=== PATIENT | male | born 1975 | race Caucasian/White ===

== ENCOUNTER 2016-08-16 10:58 | Emergency (ER) ==
--- NOTE | 2016-08-16 11:12 | ED.PDOC ---
General ED Provider: Dr. DENISSE ROLLE Chief Complaint: Tooth Problem Stated Complaint: Been hurting left upper teeth, face is swollen. Time Seen by Physician: 11:10 Mode of Arrival: Walk-In Information Source: Patient Primary Care Provider: EDISON COLINDRES Nursing and Triage Documentation Reviewed and Agree: Yes EENT Complaint Exam - Dental/Oral Complaint/Exam Mechanism of Injury: No known trauma Symptoms Are: Still present Timing: Constant Initial Severity: Mild Current Severity: Moderate Character: Reports: Aching Aggravating: Reports: Cold, Chewing Alleviating: Reports: None Associated Signs and Symptoms: Reports: Swelling Cardiac Risk Factors: Reports: None Dental/Oral Surgical History: Reports: None Tooth Findings: Present: Percussion tenderness Cervical Lymphadenopathy Present: No Facial Swelling Present: Yes Teeth Picture: 1 - tenderness on percussion, no caries Differential Diagnoses: Dental Abcess Review of Systems - Review Of Systems Constitutional: Reports: No symptoms Eyes: Reports: No symptoms Ears, Nose, Mouth, Throat: Reports: No symptoms, Mouth pain, Mouth swelling Respiratory: Reports: No symptoms Cardiac: Reports: No symptoms GI: Reports: No symptoms : Reports: No symptoms Musculoskeletal: Reports: No symptoms Skin: Reports: No symptoms Neurological: Reports: No symptoms Endocrine: Reports: No symptoms Hematologic/Lymphatic: Reports: No symptoms All Other Systems: Reviewed and Negative Past Medical History - Past Medical History Previously Healthy: Yes Endocrine: Reports: None Cardiovascular: Reports: None Respiratory: Reports: None Hematological: Reports: None Gastrointestinal: Reports: None Genitourinary: Reports: None Neuro/Psych: Reports: None Musculoskeletal: Reports: Arthritis, Joint Pain Cancer: Reports: None - Surgical History General Surgical History: Reports: None - Family History Family History: Reports: None - Social History Smoking Status: Former smoker Hx Substance Use: No Alcohol Screening: Occasionally Physical Exam - Physical Exam Appearance: Well-appearing, No pain distress, Well-nourished Eyes: MEAGHAN, EOMI, Conjunctiva clear ENT: Ears normal, Nose normal, Oropharynx normal Respiratory: Airway patent, Breath sounds clear, Breath sounds equal, Respirations nonlabored Cardiovascular: RRR, Pulses normal, No rub, No murmur GI/: Soft, Nontender, No masses, Bowel sounds normal, No Organomegaly Musculoskeletal: Normal strength, ROM intact, No edema, No calf tenderness Skin: Warm, Dry, Normal color Neurological: Sensation intact, Motor intact, Reflexes intact, Cranial nerves intact, Alert, Oriented Psychiatric: Affect appropriate, Mood appropriate Critical Care Note - Critical Care Note Total Time (mins): 0 Course - Course Orders, Labs, Meds: Orders Category Date Time Status Ketorolac Tromethamine [Toradol] MEDS 08/16/16 11:10 Stat 60 mg IM ONCE STA Vital Signs: Temp Pulse Resp BP Pulse Ox 08/16/16 10:59 98.7 F 62 20 141/70 H 97 Departure - Departure Time of Disposition: 11:13 Disposition: HOME SELF-CARE Discharge Problem: Toothache Instructions: Dental Abscess (ED) Condition: Stable Pt referred to PMD for follow-up: Yes (dentist) Additional Instructions: take medications with food needs f/u with dentist Prescriptions: Amoxicillin/Potassium Clav [Augmentin 500-125 mg Tab] 1 tab PO Q12HR #20 tablet Hydrocodone/Acetaminophen [[place] 5-325 Tablet] 1 tab PO TID PRN #12 tablet PRN Reason: PAIN Allergies/Adverse Reactions: Allergies No Known Allergies Allergy (Verified 08/16/16 11:05) Home Medications: Ambulatory Orders Amoxicillin/Potassium Clav [Augmentin 500-125 mg Tab] 1 tab PO Q12HR #20 tablet 08/16/16 Hydrocodone/Acetaminophen [[place] 5-325 Tablet] 1 tab PO TID PRN #12 tablet 08/16 Disposition Discussed With: Patient
[2016-08-16 11:17] VITALS: BP 141/70; TEMP 98.7; BMI 21.2
[2016-08-16] MEDS: TORADOL IM STA (11:33)
== END 2016-08-16 11:52 | disposition home or self-care (01) ==
LOC: ED 10:58
DX: K08.89 Other specified disorders of teeth and supporting structures (principal); K04.7 Periapical abscess without sinus
CPT/HCPCS: 96372; 99282

== ENCOUNTER 2017-03-08 16:53 | Emergency (ER) ==
[2017-03-08 16:56] VITALS: BP 147/86; TEMP 100.4; BMI 21.7
[2017-03-08] MEDS ORDERED: ZOFRAN 4 MG/2 ML IM STA (17:07)
[2017-03-08] MEDS ORDERED: MORPHINE 2 MG/ML SYRINGE IM STA (17:09)
[2017-03-08 17:30] LABS: BASOPHILS # (AUTO) 0.1 K/uL (0-0.2); BASOPHILS % (AUTO) 0.9 % (0.0-3.0); HEMATOCRIT 43.9 % (42.0-52.0); HEMOGLOBIN 15.6 g/dl (14.0-18.0); IMMATURE GRANULOCYTE % (AUTO) 0.2 % (0.0-5.0); LYMPHOCYTES % (AUTO) 11.6 (10.0-50.0); MEAN CORPUSCULAR HEMOGLOBIN 31.3 pg (27.0-31.0); MEAN CORPUSCULAR HGB CONC 35.5 (31.8-35.4); MEAN CORPUSCULAR VOLUME 88.2 fl (80.0-94.0); MONOCYTES # (AUTO) 0.7 K/uL (0.4-2.0); MONOCYTES % (AUTO) 8.4 (0-10); NEUTROPHILS # (AUTO) 6.5 K/ul (2.0-6.9); NEUTROPHILS % (AUTO) 78.9; PLATELET COUNT 250 10^3/uL (140-440); RED BLOOD COUNT 4.98 10^6/ul (4.70-6.10); WHITE BLOOD COUNT 8.22 K/ul (4.2-10.2)
--- NOTE | 2017-03-08 17:42 | CT ---
EXAM: CT abdomen and pelvis without contrast. HISTORY: Epigastric pain, drinks a lot. TECHNIQUE: Multi-slice transaxial helical CT. Coronal and sagittal reformatons were performed. COMPARISON: 09/17/2014. FINDINGS: The heart is normal in size. The lung bases are clear. Evaluation of the solid organs is limited without IV contrast. No hydronephrosis or renal calculus i s seen. The spleen is normal in size. The gallbladder appears partly contracted. No evidence of in trahepatic biliary ductal dilation is seen. The pancreas and the bilateral adrenal glands appear holli ssly unremarkable within the confines of a noncontrast exam The bowel is not dilated. Small bowel loops are diffusely fluid-filled. No evidence of pathologic joe wel dilation is seen. The appendix is not definitively identified. No evidence of dilated tubular s tructure right lower quadrant is seen. Urinary bladder appears unremarkable. The prostate is normal in size. No evidence of free fluid within the pelvis is seen. Operative changes of left inguinal h ernia repair are suggested. There is no retroperitoneal adenopathy. Moderate disc space narrowing wi th endplate osteophytosis at L5-S1 is present. IMPRESSION: 1. Diffuse small bowel enteritis/ileus. 2. No hydronephrosis or bowel obstruction. 3. Prior left inguinal hernia repair. 4. L5-S1 moderate disc disease.
[2017-03-08 18:02] LABS: ALANINE AMINOTRANSFERASE 25 U/L (12-78); ALBUMIN/GLOBULIN RATIO 1.18; ALKALINE PHOSPHATASE 76 U/L (50-136); AMYLASE 59 U/L (25-115); ANION GAP 12.6; ASPARTATE AMINO TRANSFERASE 24 U/L (15-37); BILIRUBIN,TOTAL 0.39 mg/dL (0.00-1.20); BLOOD UREA NITROGEN 8 mg/dL (7-18); BUN/CREATININE RATIO 7.54; CALCIUM 9.5 mg/dL (8.2-10.2); CARBON DIOXIDE 27 mmol/L (21-32); CHLORIDE 98 mmol/L (98-107); CREATINE KINASE 145 U/L; CREATININE 1.06 mg/dL (0.60-1.10); GLUCOSE 108 mg/dL (70-100); LIPASE 39 U/L (8-78); POTASSIUM 3.6 mmol/L (3.5-5.1); SODIUM 134 mmol/L (136-145); TOTAL PROTEIN 7.4 g/dL (6.4-8.2)
[2017-03-08] MEDS ORDERED: DILAUDID 1 MG/ML SYRINGE IM STA (18:22)
--- NOTE | 2017-03-08 19:00 | ED.PDOC ---
General ED Provider: Dr. ROBYN BERRIOS Chief Complaint: Abdominal Pain Stated Complaint: ABDOMINAL PAIN Time Seen by Physician: 17:00 Mode of Arrival: Walk-In Information Source: Patient Exam Limitations: No limitations Primary Care Provider: EDISON COLINDRES Nursing and Triage Documentation Reviewed and Agree: Yes Review of Systems - Review Of Systems Constitutional: Reports: No symptoms Eyes: Reports: No symptoms Ears, Nose, Mouth, Throat: Reports: No symptoms Respiratory: Reports: No symptoms Cardiac: Reports: No symptoms GI: Reports: Abdominal pain : Reports: No symptoms Musculoskeletal: Reports: No symptoms Skin: Reports: No symptoms Neurological: Reports: No symptoms Endocrine: Reports: No symptoms Hematologic/Lymphatic: Reports: No symptoms All Other Systems: Reviewed and Negative Past Medical History - Past Medical History Previously Healthy: Yes Endocrine: Reports: None Cardiovascular: Reports: None Respiratory: Reports: None Hematological: Reports: None Gastrointestinal: Reports: None Genitourinary: Reports: None Neuro/Psych: Reports: None Musculoskeletal: Reports: Arthritis, Joint Pain Cancer: Reports: None - Surgical History General Surgical History: Reports: None - Family History Family History: Reports: None - Social History Smoking Status: Former smoker Hx Substance Use: No Alcohol Screening: Occasionally Physical Exam - Physical Exam Appearance: Well-appearing, No pain distress, Well-nourished Eyes: MEAGHAN, EOMI, Conjunctiva clear ENT: Ears normal, Nose normal, Oropharynx normal Respiratory: Airway patent, Breath sounds clear, Breath sounds equal, Respirations nonlabored Cardiovascular: RRR, Pulses normal, No rub, No murmur GI/: Tender Musculoskeletal: Normal strength, ROM intact, No edema, No calf tenderness Skin: Warm, Dry, Normal color Neurological: Sensation intact, Motor intact, Reflexes intact, Cranial nerves intact, Alert, Oriented Psychiatric: Affect appropriate, Mood appropriate Critical Care Note - Critical Care Note Total Time (mins): 0 Course - Course Hematology/Chemistry: 03/08/17 17:10 03/08/17 17:10 Orders, Labs, Meds: Lab Review 03/08/17 03/08/17 17:10 17:10 WBC 8.22 RBC 4.98 Hgb 15.6 Hct 43.9 MCV 88.2 MCH 31.3 H MCHC 35.5 H RDW Coeff of Leeann 12.8 Plt Count 250 Immature Gran % (Auto) 0.2 Neut % (Auto) 78.9 Lymph % (Auto) 11.6 Braxton % (Auto) 8.4 Eos % (Auto) 0.0 Baso % (Auto) 0.9 Immature Gran # (Auto) 0.0 Neut # 6.5 Lymph # 1.0 Braxton # 0.7 Eos # 0.0 Baso # 0.1 Sodium 134 L Potassium 3.6 Chloride 98 Carbon Dioxide 27 Anion Gap 12.6 BUN 8 Creatinine 1.06 Estimated GFR (MDRD) 77.00 BUN/Creatinine Ratio 7.54 Glucose 108 H Calcium 9.5 Total Bilirubin 0.39 AST 24 ALT 25 Alkaline Phosphatase 76 Total Creatine Kinase 145 CK-MB (CK-2) 1.0 CK-MB (CK-2) % 0.01546 Troponin I < 0.0100 Total Protein 7.4 Albumin 4.0 Globulin 3.4 Albumin/Globulin Ratio 1.18 Amylase 59 Lipase 39 Orders Category Date Time Status EKG-(ED ONLY) Stat CARDIO 03/08/17 18:36 Completed AMYLASE Stat LAB 03/08/17 17:10 Completed CBC W/ AUTO DIFF Stat LAB 03/08/17 17:10 Completed COMPREHENSIVE METABOLIC PANEL Stat LAB 03/08/17 17:10 Completed CREATINE KINASE Stat LAB 03/08/17 17:10 Completed LIPASE Stat LAB 03/08/17 17:10 Completed TROPONIN I Stat LAB 03/08/17 17:10 Completed Hydromorphone HCl [Dilaudid 1 mg/ml Syringe] MEDS 03/08/17 18:22 Discontinued 0.5 mg IM ONCE STA Morphine Sulfate [Morphine 2 mg/ml Syringe] MEDS 03/08/17 17:09 Discontinued 4 mg IM ONCE STA Ondansetron HCl/Pf [Zofran 4 mg/2 ml] MEDS 03/08/17 17:07 Discontinued 4 mg IM ONCE STA CT ABDOMEN/PELVIS WO CONTRAST Stat RADS 03/08/17 17:06 Completed Medications Discontinued Medications Generic Name Dose Route Start Last Admin Trade Name Freq PRN Reason Stop Dose Admin Hydromorphone HCl 0.5 mg 03/08/17 18:22 03/08/17 18:40 Dilaudid 1 Mg/Ml Syringe IM 03/08/17 18:23 0.5 mg ONCE STA Administration Morphine Sulfate 4 mg 03/08/17 17:09 03/08/17 17:52 Morphine 2 Mg/Ml Syringe IM 03/08/17 17:10 4 mg ONCE STA Administration Ondansetron HCl 4 mg 03/08/17 17:07 03/08/17 17:53 Zofran 4 Mg/2 Ml IM 03/08/17 17:08 4 mg ONCE STA Administration Vital Signs: Temp Pulse Resp BP Pulse Ox 03/08/17 16:54 100.4 F H 81 20 147/86 H 99 Departure - Departure Time of Disposition: 19:00 Disposition: HOME SELF-CARE Discharge Problem: Abdominal pain Instructions: Acute Abdominal Pain (ED), Abdominal Pain (ED) Condition: Good Pt referred to PMD for follow-up: Yes Additional Instructions: follow up with pcp Prescriptions: Hydrocodone/Acetaminophen [[place] 10-325 Tablet] 1 each PO Q8HR #7 tablet Allergies/Adverse Reactions: Allergies No Known Allergies Allergy (Verified 03/08/17 16:56) Home Medications: Ambulatory Orders Hydrocodone/Acetaminophen [[place] 10-325 Tablet] 1 each PO Q8HR #7 tablet
== END 2017-03-08 19:05 | disposition home or self-care (01) ==
LOC: ED 16:53
DX: R10.9 Unspecified abdominal pain (principal)
CPT/HCPCS: 36415; 80053; 82150; 82550; 82553; 83690; 84484; 85025; 93005; 93010; 96372; 99283

== ENCOUNTER 2017-12-03 17:18 | Emergency (ER) ==
[2017-12-03 17:22] VITALS: BP 136/84; TEMP 98.5; BMI 19.8
[2017-12-03] MEDS ORDERED: DECADRON 4 MG/ML SDV IM STA (17:37)
[2017-12-03] MEDS ORDERED: BENADRYL IM STA (17:37)
--- NOTE | 2017-12-03 17:41 | ED.PDOC ---
General ED Provider: Dr. ROBYN BERRIOS Chief Complaint: Rash Stated Complaint: RASH Time Seen by Physician: 17:39 (EXPOSED TO POISION DMITRI) Mode of Arrival: Walk-In Information Source: Patient Exam Limitations: No limitations Nursing and Triage Documentation Reviewed and Agree: Yes Does patient meet sepsis criteria?: Yes If yes, has appropriate treatment been initiated?: No System Inflammatory Response Syndrome: Not Applicable Sepsis Protocol: For patient's 13 years and over: Temp is 96.8 and below OR 101 and greater Pulse >90 BPM Resp >20/minute Acutely Altered Mental Status Are patient's symptoms suggestive of a new infection, such as: -Pneumonia -Skin, Soft Tissue -Endocarditis -UTI -Bone, Joint Infection -Implantable Device -Acute Abdominal Infection -Wound Infection -Meningitis -Blood Stream Catheter Infection -Unknown Skin Complaint Exam - Skin Rash/Itching Complaint/Exam Onset/Duration: 1 DAY Symptoms Are: Still present Initial Severity: Mild Current Severity: Mild Potential Exposures: Reports: Plants Aggravating: Reports: None Alleviating: Reports: None Associated Signs and Symptoms: Denies: Difficulty breathing, Fever, Chills Skin Findings: Present: Maculae, Papules, Vesicles Differential Diagnoses: Allergic Reaction, Contact Dermatitis, Poison Dmitri/[place] Review of Systems - Review Of Systems Constitutional: Reports: No symptoms Eyes: Reports: No symptoms Ears, Nose, Mouth, Throat: Reports: No symptoms Respiratory: Reports: No symptoms Cardiac: Reports: No symptoms GI: Reports: No symptoms : Reports: No symptoms Musculoskeletal: Reports: No symptoms Skin: Reports: Rash Neurological: Reports: No symptoms Endocrine: Reports: No symptoms Hematologic/Lymphatic: Reports: No symptoms All Other Systems: Reviewed and Negative Past Medical History - Past Medical History Previously Healthy: Yes Endocrine: Reports: None Cardiovascular: Reports: None Respiratory: Reports: None Hematological: Reports: None Gastrointestinal: Reports: None Genitourinary: Reports: None Neuro/Psych: Reports: None Musculoskeletal: Reports: Arthritis, Joint Pain Cancer: Reports: None - Surgical History General Surgical History: Reports: None - Family History Family History: Reports: None - Social History Smoking Status: Former smoker Hx Substance Use: No Alcohol Screening: Occasionally Physical Exam - Physical Exam Appearance: Well-appearing, No pain distress, Well-nourished Eyes: MEAGHAN, EOMI, Conjunctiva clear ENT: Ears normal, Nose normal, Oropharynx normal Respiratory: Airway patent, Breath sounds clear, Breath sounds equal, Respirations nonlabored Cardiovascular: RRR, Pulses normal, No rub, No murmur GI/: Soft, Nontender, No masses, Bowel sounds normal, No Organomegaly Musculoskeletal: Normal strength, ROM intact, No edema, No calf tenderness Skin: Warm, Dry (MACULOPAPULAR RASH ARMS ) Neurological: Sensation intact, Motor intact, Reflexes intact, Cranial nerves intact, Alert, Oriented Psychiatric: Affect appropriate, Mood appropriate Critical Care Note - Critical Care Note Total Time (mins): 0 Course - Course Orders, Labs, Meds: Orders Category Date Time Status Dexamethasone 4 mg/ml Inj [Decadron 4 mg/ml Sdv] MEDS 12/03/17 17:37 Stat 8 mg IM ONCE STA Diphenhydramine Inj [Benadryl] MEDS 12/03/17 17:37 Stat 25 mg IM ONCE STA Medications Discontinued Medications Generic Name Dose Route Start Last Admin Trade Name Freq PRN Reason Stop Dose Admin Dexamethasone Sodium Phosphate 8 mg 12/03/17 17:37 Decadron 4 Mg/Ml Sdv IM 12/03/17 17:38 ONCE STA Diphenhydramine HCl 25 mg 12/03/17 17:37 Benadryl IM 12/03/17 17:38 ONCE STA Vital Signs: Temp Pulse Resp BP Pulse Ox 12/03/17 17:18 98.5 F 65 20 136/84 96 Departure - Departure Time of Disposition: 17:40 Disposition: HOME SELF-CARE Discharge Problem: Pruritic rash, Poison dmitri dermatitis Instructions: Poison Dmitri (ED) Condition: Good Pt referred to PMD for follow-up: Yes IPMP verified?: No Additional Instructions: Please call your Family Physician as soon as possible to schedule a follow-up appointment. Allergies/Adverse Reactions: Allergies No Known Allergies Allergy (Verified 12/03/17 17:22) Home Medications: Ambulatory Orders 1 [No Reported Medications] 12/03/17
== END 2017-12-03 18:07 | disposition home or self-care (01) ==
LOC: ED 17:18
DX: L23.7 Allergic contact dermatitis due to plants, except food (principal)
CPT/HCPCS: 96372; 99283